=== PATIENT | female | born 1985 | race Caucasian/White ===

== ENCOUNTER 2019-10-16 10:00 | Emergency (ER) | payer OTHER ==
[~2019-10-16] VITALS: Ht 160 cm; Wt 77.1 kg
[2019-10-16 10:37] LABS: URINE BLOOD 3+ (Negative); URINE CLARITY CLEAR; URINE COLOR YELLOW; URINE GLUCOSE-RANDOM NEGATIVE (Negative); URINE KETONES 2+ (Negative); URINE LEUKOCYTES-REFLEX NEGATIVE (Negative); URINE NITRITE-REFLEX NEGATIVE (Negative); URINE PROTEIN 2+ (Negative); URINE SPECIFIC GRAVITY >= 1.030 (1.005-1.030)
[2019-10-16 10:39] LABS: ICTOTEST (BILI CONFIRMATORY) Negative (Negative); URINE BILIRUBIN 1+ (Negative)
[2019-10-16 10:46] LABS: AMP/METHAMP Negative (Negative); BARBITURATES Negative (Negative); BENZODIAZEPINES Negative (Negative); CASTS None Seen /LPF (None Seen); COCAINE Negative (Negative); CRYSTALS None Seen /LPF (None Seen); METHADONE Negative (Negative); MUCUS 4-6 Moderate strn/LPF (None Seen); OPIATES Negative (Negative); PCP Negative (Negative); SQUAMOUS 4-10 Moderate /LPF (0-3); THC Negative (Negative); URINE WBC-REFLEX 0-5 Rare /HPF (0-5)
[2019-10-16 11:27] LABS: ABSOLUTE EOSINOPHILS 0.1 thou/uL (0.0-0.7); ABSOLUTE LYMPHOCYTES 1.2 thou/uL (0.8-5.3); ABSOLUTE MONOCYTES 0.4 thou/uL (0.0-1.2); ABSOLUTE NEUTROPHILS 5.1 thou/uL (1.6-8.1); BASOPHILS 0.6 %; EOSINOPHILS 0.9 %; HEMATOCRIT 37.8 % (37.0-47.0); HEMOGLOBIN 13.2 gm/dL (12.0-15.0); LYMPHOCYTES 17.9 %; MCH 33.4 pg (26.0-34.0); MCHC 34.9 g/dL (28.0-37.0); MCV 95.7 fL (80.0-100.0); MONOCYTES 6.4 %; MPV 8.8 fl. (7.2-11.1); NUCLEATED RBCS 0 /100WBC; PLATELET COUNT* 203 thou/uL (150-400); POLYS 74.2 %; RBC 3.95 mil/uL (4.20-5.00); RDW-CV 13.3 % (10.5-14.5); WBC 6.9 thou/uL (4.0-11.0)
[2019-10-16 11:39] LABS: CALCIUM 8.3 mg/dL (8.5-10.1); CREATININE 0.8 mg/dL (0.6-1.3); POTASSIUM 3.5 mmol/L (3.5-5.1)
[2019-10-16 11:44] LABS: ALBUMIN 3.8 g/dL (3.4-5.0); TOTAL BILIRUBIN 0.6 mg/dL (<0.1-1.0); TOTAL PROTEIN 7.5 g/dL (6.4-8.2)
[2019-10-16] MEDS ORDERED: VISTARIL 25 MG25 M1 PO (12:27)
[2019-10-16 12:45] VITALS: BP 114/80
--- NOTE | 2019-10-16 16:44 | EKG ---
[place] [address] ELECTROCARDIOGRAM REPORT Name: DMITRY STARR Room: [facility]#: [id number] Admission: 10/16/19 Attend Phys: Discharge: 10/16/19 Date of : 83 Date of Service: 10/16/19 1057 Report #: [id number] THIS REPORT FOR: //name// [facility] ED Test Date: 2019-10-16 Test Time: 10:57:01 Pat Name: DMITRY STARR Department: Room: Gender: F Telephone Sex Worker: [place] : 1985 Requested By: Joe Dean Order Number: [id number] MD: Taye Ling Measurements Intervals [place] Rate: 77 P: 23 MN: 149 QRS: 20 QRSD: 92 T: 35 QT: 373 QTc: 423 Interpretive Statements Sinus rhythm No previous ECG available for comparison Electronically Signed On 10-16-2019 16:42:57 CDT by Taye Ling [email or web address] <ELECTRONICALLY SIGNED> By: Taye Ling MD, [facility] 10/16/19 1642 D: [id number] Taye Ling MD, FACC /EPI
== END 2019-10-16 12:47 | disposition home or self-care (01) ==
LOC: M.ERS 10:00
PROVIDERS: Physician Assistant
DX: R94.6 Abnormal results of thyroid function studies (principal); F41.9 Anxiety disorder, unspecified; R94.5 Abnormal results of liver function studies; R31.9 Hematuria, unspecified; R80.9 Proteinuria, unspecified; R42 Dizziness and giddiness